=== PATIENT | female | born 1955 | race Caucasian/White ===

== ENCOUNTER 2018-09-29 03:34 | Emergency (ER) | payer MEDICARE ==
[2018-09-29] MEDS ORDERED: Fluor-I-Strip/Ful-Flo OP ONE ×2 (04:03→04:09)
[2018-09-29] MEDS ORDERED: Eye-Stream Solution OP ONE (04:03)
[2018-09-29] MEDS ORDERED: TETRACAINE 0.5% STERI-UNIT SOL OP STA (04:03)
[2018-09-29] MEDS ORDERED: TETRACAINE 0.5% STERI-UNIT SOL OP ONE (04:04)
[2018-09-29] MEDS ORDERED: Eye-Stream Solution ONE (04:10)
--- NOTE | 2018-09-29 04:10 | ERPHSYRPT ---
- History of Present Illness Time Seen by Provider: 09/29/18 04:03 Source: patient Exam Limitations: no limitations Patient Subjective Stated Complaint: Left eye pain and headache Triage Nursing Assessment: Patient ambulated into ED and transferred self to bed. Patient complains of left eye pain and headache 08/23. Patient states she woke up and patient states both eyes were "fluttering" in her head. Patient states her left eye still feels different. Patient states her head was hurting also so she thought her b/p was elevated and took Amlodipine 5mg and Lisinopril 40mg. Patient A+O X 3. Patient lungs noted to be clear a/p josh. No edema noted. Patient's left eye unable to open with light on. Upon inspection patient 's left eye noted to be blood shot and swollen. Physician History: 63-year-old white female arrives with complaint that she woke up approximately an hour ago she states that she felt like her eyes were fluttering in her head she states that she is having pain when she opens her left eye describes it as a burning pain states she hurts in the back of the eye as well. Denies vision change. Has not had any speech problems movement disorders. Past medical history includes depression, chronic infection. Past surgical history includes , orthopedic surgery, left ankle and foot surgery tonsillectomy adenoidectomy D&C. Timing/Duration: today (approximate hour ago) Severity: moderate Modifying Factors: Improves With: other (pain when she opens her left eye) Associated Symptoms: No nausea, No vomiting, No abdominal pain, No shortness of breath, No heartburn, No diaphoresis, No cough, No chills, No chest pain, No fever, No headaches, No loss of appetite, No malaise, No rash, No syncope, No seizure, No weakness Allergies/Adverse Reactions: latex Allergy (Mild, Verified 09/29/18 03:51) Hives prochlorperazine edisylate [From Compazine] Allergy (Verified 09/29/18 03:51) Swelling of Tongue and Lips prochlorperazine maleate [From Compazine] Allergy (Verified 09/29/18 03:51) silver sulfadiazine [From Silvadene] Allergy (Verified 09/29/18 03:51) pt states used on her RLE, turned skin black Sulfa (Sulfonamide Antibiotics) Allergy (Verified 09/29/18 03:51) alginate dressing Adverse Reaction (Verified 09/29/18 03:51) turned her skin black Home Medications: Lisinopril 20 mg [Zestril 20 MG] 40 mg PO BID 08/01/15 [History] Amlodipine Besylate 5 mg [Norvasc 5 mg] 1 tab PO BID 09/29/18 [History] Hx Tetanus, Diphtheria Vaccination/Date Given: Yes (2011) Hx Influenza Vaccination/Date Given: Yes (2017) Hx Pneumococcal Vaccination/Date Given: No Immunizations Up to Date: Yes - Review of Systems Constitutional: No Fever, No Chills Eyes: Eye Pain (Left eye pain), Other (pain when she opens her left eye) Ears, Nose, & Throat: No Symptoms Respiratory: No Cough, No Dyspnea Cardiac: No Chest Pain, No Edema, No Syncope Abdominal/Gastrointestinal: No Abdominal Pain, No Nausea, No Vomiting, No Diarrhea Genitourinary Symptoms: No Dysuria Musculoskeletal: No Back Pain, No Neck Pain Skin: No Rash Neurological: No Dizziness, No Focal Weakness, No Sensory Changes Psychological: No Symptoms Endocrine: No Symptoms All Other Systems: Reviewed and Negative - Past Medical History Pertinent Past Medical History: Yes Neurological History: No Pertinent History ENT History: No Pertinent History Cardiac History: Hypertension Respiratory History: No Pertinent History Endocrine Medical History: No Pertinent History Musculoskeletal History: No Pertinent History GI Medical History: No Pertinent History History: No Pertinent History Psycho-Social History: Depression Female Reproductive Disorders: No Pertinent History Other Medical History: CHRONIC INFECTION SKIN R LL - Past Surgical History Past Surgical History: Yes Neuro Surgical History: No Pertinent History Cardiac: No Pertinent History Respiratory: No Pertinent History Gastrointestinal: No Pertinent History Genitourinary: No Pertinent History Musculoskeletal: Orthopedic Surgery Female Surgical History: Section, Other Other Surgical History: left ankle foot reconstruction, T&A, D & C-x3. x1 - Social History Smoking Status: Never smoker Exposure to second hand smoke: Yes Drug Use: marijuana Patient Lives Alone: No - Female History Hx Last Menstrual Period: Menopausal Hx Now: No - Nursing Vital Signs Nursing Vital Signs: Initial Vital Signs Temperature 98.7 F 09/29/18 03:41 Pulse Rate 89 09/29/18 03:41 Respiratory Rate 18 09/29/18 03:41 Blood Pressure 147/78 09/29/18 03:41 O2 Sat by Pulse Oximetry 95 09/29/18 03:41 Pain Scale Pain Intensity 5 - Physical Exam General Appearance: mild distress, alert, other (well-developed well-nourished white female resists left eye opening opens left eye when lights are out) Eye Exam: PERRL/EOMI, other (Patient resists left eye opening, open spontaneously after for her. Eyes PERRLA EOMI, fundi unremarkable left conjunctiva mildly erythematous, left sclera mild erythema, both eyes are soft) Ears, Nose, Throat Exam: normal ENT inspection, TMs normal, pharynx normal, moist mucous membranes Neck Exam: normal inspection, non-tender, supple, full range of motion Respiratory Exam: normal breath sounds, lungs clear, No respiratory distress Cardiovascular Exam: regular rate/rhythm, normal heart sounds, normal peripheral pulses Gastrointestinal/Abdomen Exam: soft, normal bowel sounds, No tenderness, No mass Back Exam: normal inspection, normal range of motion, No CVA tenderness, No vertebral tenderness Extremity Exam: normal inspection, normal range of motion, pelvis stable Neurologic Exam: alert, oriented x 3, cooperative, peoplesoft consultant II-XII nml as tested ( this girl), normal mood/affect, nml cerebellar function, nml station & gait, sensation nml, other (patient alert, oriented 3, cranial nerves II through XII intact, no facial droop, speech normal, veterinarian poultry equal and symmetrical 5/5. Normal finger to nose, sensation intact to all extremities, Nadege Coma Scale 15), No motor deficits Skin Exam: normal color, warm, dry, No rash SpO2 Interpretation: normal (9she needs a vision exam a5%) SpO2: 95 Oxygen Delivery: Room Air - Course Nursing assessment & vital signs reviewed: Yes Ordered Tests: Active Orders 24 hr Category Date Time Status Visual Acuity STAT Care 09/29/18 04:03 Active Medication Summary Discontinued Medications Generic Name Dose Route Start Last Admin Trade Name Freq PRN Reason Stop Dose Admin Hydrocodone Bitart/Acetaminophen 1 tab 09/29/18 04:45 09/29/18 05:02 [place] 5/325 Mg PO 09/29/18 04:46 1 tab STAT ONE Administration Hydrocodone Bitart/Acetaminophen 1 tab 09/29/18 04:45 09/29/18 05:02 [place] 5/325 Mg PO 09/29/18 04:46 1 tab SENT HOME W/ PATIENT ONE Administration Hydrocodone Bitart/Acetaminophen Confirm 09/29/18 04:55 [place] 5/325 Mg Administered 09/29/18 04:56 Dose 2 tab .ROUTE .STK-MED ONE Ciprofloxacin 2.5 ml 09/29/18 04:44 09/29/18 05:03 Ciloxan Ophth OP 09/29/18 04:45 2.5 ml STAT ONE Administration Ciprofloxacin Confirm 09/29/18 04:54 Ciloxan Ophth Administered 09/29/18 04:55 Dose 2.5 ml .ROUTE .STK-MED ONE Eye Irrigation Solution 15 ml 09/29/18 04:03 09/29/18 04:10 Eye-Stream Solution OP 09/29/18 04:04 15 ml STAT ONE Administration Eye Irrigation Solution Confirm 09/29/18 04:10 Eye-Stream Solution Administered 09/29/18 04:11 Dose 30 ml .ROUTE .STK-MED ONE Fluorescein Sodium 1 mg 09/29/18 04:03 09/29/18 04:10 [id number]-[id number]/Ful-Albino OP 09/29/18 04:04 1 mg STAT ONE Administration Fluorescein Sodium Confirm 09/29/18 04:09 Hbiaq-G-Xieap/Ful-Albino Administered 09/29/18 04:10 Dose 1 mg OP .STK-MED ONE Tetracaine HCl 4 ml 09/29/18 04:03 09/29/18 04:08 Tetracaine 0.5% Steri-Unit Luz OP 09/29/18 04:04 4 ml STAT STA Administration Tetracaine HCl Confirm 09/29/18 04:04 Tetracaine 0.5% Steri-Unit Luz Administered 09/29/18 04:05 Dose 4 ml OP .STK-MED ONE - Progress Progress: improved Progress Note: 09/29/18 04:22 63-year-old white female she arrives with complaint of left eye pain since approximately 1 hour she states she woke up she had what she felt was fluttering in both eyes she states that she had pain in her left eye whenever she open the left eye, She did not have any speech problems no facial droops no problems moving any extremity, On physical examination patient was holding her left eye shut and resisted opening with after assisting her to open her eyes she opened it spontaneously and looked around without problems she did state that her to open her eye, Patient's eyes examined eyes PERRLA EOMI fundi are unremarkable left conjunctiva mildly erythematous left sclera mildly erythematous, both globes are soft, Left eye lids everted no foreign bodies are noted, Patient was given tetracaine 0.5% in the left eye she immediately was feeling markedly better had no problems opening her eye or looking around. Patient did state that she was worried she was having a stroke because her eyes were fluttering I've offered do a head CT on the patient Flynn however she really doesn't want this and I really don't feel like she has any symptoms of stroke at this time. Will go ahead and stainthe left eye rule out any corneal abrasions. I've asked the nurses to obtain a vision examination 09/29/18 04:40 Both lids everted left eye no foreign bodies noted. Left eye stained with fluoroscopy stain no corneal abrasions are noted. Left eye rinsed with sterile eyewash solution. Ciloxan drops ordered patient's left eye. Will give patient [place] for pain. Patient advised to follow-up with meter mechanic or inspector casing later today. - Departure Time of Disposition: 05:04 Departure Disposition: Home Clinical Impression: Left eye pain Conjunctivitis, left eye Qualifiers: Conjunctivitis type: acute Acute conjunctivitis type: unspecified Qualified Code(s): H10.32 - Unspecified acute conjunctivitis, left eye Condition: Fair Critical Care Time: No Referrals: MICKEY CHAPA [Primary Care Provider] - Additional Instructions: Return home. Ciloxan drops 0.3% one to 2 drops in the left eye 4 times a day for 5 days. [place] as prescribed. Follow-up with Dr. Wheeler, your meter mechanic, or inspector casing later today. Return for acute distress or for severe symptoms. Prescriptions: Hydrocodone/Acetaminophen [[place] 5-325 Tablet] 1 tab PO Q4-6HPRN PRN #7 tablet MDD 6 tablets PRN Reason: Pain
[2018-09-29] MEDS ORDERED: Ciloxan OPHTH OP ONE (04:44)
[2018-09-29] MEDS ORDERED: NORCO 5/325 MG PO ONE ×2 (04:45)
[2018-09-29] MEDS ORDERED: Ciloxan OPHTH ONE (04:54)
[2018-09-29] MEDS ORDERED: NORCO 5/325 MG ONE (04:55)
[2018-09-29 05:16] VITALS: BP 139/87; PULSE 68; O2SAT 99
== END 2018-09-29 05:15 | disposition home or self-care (01) ==
LOC: ED 03:34
DX: H57.12 Ocular pain, left eye (principal); H10.9 Unspecified conjunctivitis; R51 Headache; Z79.899 Other long term (current) drug therapy
CPT/HCPCS: 99283; A9270-GY